=== PATIENT | female | born 1995 | race Caucasian/White ===

== ENCOUNTER 2017-12-18 16:23 | Emergency (ER) | payer SELFPAY ==
[~2017-12-18] VITALS: Ht 162.6 cm; Wt 60.0 kg
[2017-12-18 16:33] VITALS: BP 133/78; PULSE 58; RESP 16; TEMP 98.3; O2SAT 99
--- NOTE | 2017-12-18 16:50 | PD ---
HPI Chief Complaint: ENT Complaint Time Seen by Provider: 16:42 Travel History International Travel<30 days: No Contact w/Intl Traveler<30days: No Traveled to known affect area: No History of Present Illness HPI Patient comes to emergency department complaining of productive cough, sore throat, nausea, and just not feeling well overall. Patient reports her symptoms began approximately 48 hours ago. Denies any chest pain, shortness of breath, abdominal pain, change in bowel or bladder, , or fevers. Patient denies taking anything for this. Denies any making symptoms better or worse. Denies any known sick contacts. PFSH Past Medical History ?: Not LMP: 10 DAYS AGO Social History Alcohol Use: Yes Tobacco Use: No Substance Use: Yes (MARIJUANA) Allergies-Medications (Allergen,Severity, Reaction): Coded Allergies: No Known Allergies (Unverified , 12/18/17) Reported Meds & Prescriptions Reported Meds & Active Scripts Active No Active Prescriptions or Reported Medications Review of Systems Except as stated in HPI: all other systems reviewed are Neg Physical Exam Narrative GENERAL: Well-developed, well nourished, in no acute distress, and non-ill appearing. SKIN: Focused skin assessment warm and dry. HEAD: Atraumatic. Normocephalic. EYES: Pupils equal and round. EOMI. No scleral icterus. No injection or drainage. ENT: No nasal bleeding or discharge. Mucous membranes pink and moist. Tympanic membrane pearly booker bilaterally. Posterior pharynx non-erythematous and without exudate. Uvula is midline. No tenderness to sinuses to palpation. NECK: Trachea midline. No cervical lymphadenopathy. Supple. No nuclear rigidity. CARDIOVASCULAR: Regular rate and rhythm. No murmur appreciated. RESPIRATORY: No accessory muscle use. No respiratory distress. Clear to auscultation. Breath sounds equal bilaterally. No coughing on exam. GASTROINTESTINAL: Abdomen soft, non-tender, nondistended, and no guarding. Hepatic and splenic margins not palpable. Normal bowel sounds x4. No pulsatile mass. MUSCULOSKELETAL: No obvious deformities. No clubbing. No cyanosis. No edema. Full range of motion. NEUROLOGICAL: Awake and alert. No obvious cranial nerve deficits. Motor grossly within normal limits. Normal speech. PSYCHIATRIC: Appropriate mood and affect; insight and judgment normal. Data Data Last Documented VS Vital Signs Date Time Temp Pulse Resp B/P (MAP) Pulse Ox O2 Delivery O2 Flow Rate FiO2 12/18/17 16:33 98.3 58 16 133/78 (96) 99 Orders Orders Influenzae A/B Antigen (12/18/17 16:46) Group A Rapid Strep Screen (12/18/17 16:46) Chest, Single Ap (12/18/17 ) Strep Culture (Group A) (12/18/17 16:54) Ed Discharge Order (12/18/17 17:28) MDM Medical Decision Making Medical Screen Exam Complete: Yes Emergency Medical Condition: Yes Interpretation(s) Last Impressions Chest X-Ray 12/18/17 0000 Signed Impressions: Service Date/Time: Monday, December 18, 2017 17:08 - CONCLUSION: 1. No acute cardiopulmonary disease. Miguel Reynolds MD Differential Diagnosis Influenza, strep pharyngitis, viral pharyngitis, pneumonia, URI, viral syndrome Narrative Course The patient is non-ill appearing and is in no respiratory distress and comfortable. The patient moves air well and oxygen saturations are normal. There is no clinical evidence to suggest pneumonia at this time. Plan of care and management were discussed with the patient who agreed with plan. The patient was instructed to follow up with their physician and instructed to return if worsens, progressively worsening shortness of breath or difficulty breathing, persistent fever, chest pains or discomfort, inability to keep medication or fluids down with or without vomiting, or as needed. Patient in no obvious distress upon re-evaluation. All pertinent laboratory/ Radiology result(s) discussed with patient. Patient reports that she had been drinking heavily the past 3 days and was uncertain if this might have anything to do with her symptoms. Any questions/concerns in reference to patient diagnosis/condition discussed and clarified prior to patient's discharge. Reinforced sheer importance of close follow up with patient's primary physician or primary care clinic. Instructed patient to return to ED immediately, if symptoms return/worsen. Patient showed understanding of above instructions. Further instructions and recommendations were detailed in discharge paperwork. Patient ambulated without difficulty out of ED at discharge. Diagnosis Primary Impression: Viral syndrome Referrals: [facility] Patient Instructions: General Instructions, Viral Syndrome (ED) Additional Instructions: Follow-up with your primary care physician in 3-5 days for evaluation. Use over -the-counter medicine for symptomatic relief. Drink plenty of non-caffeinated nonalcoholic fluids. Return to the emergency department if symptoms get worse. Scripts No Active Prescriptions or Reported Meds Disposition: 01 DISCHARGE HOME Condition: Stable Ru Rios Dec 18, 2017 16:50
--- NOTE | 2017-12-18 17:20 | RADRPT ---
EXAM DATE/TIME: 12/18/2017 17:08 [facility] COMPARISON: No previous studies available for comparison. INDICATIONS : Cough and fever. MEDICAL HISTORY : None. SURGICAL HISTORY : None. ENCOUNTER: Initial ACUITY: 3 days PAIN SCORE: 3/10 LOCATION: Bilateral chest FINDINGS: A single view of the chest demonstrates the lungs to be symmetrically aerated without evidence of mas s, infiltrate or effusion. The cardiomediastinal contours are unremarkable. Osseous structures are intact. CONCLUSION: 1. No acute cardiopulmonary disease. Miguel Reynolds MD on December 18, 2017 at 17:18 Board Certified Radiologist. This report was verified electronically.
== END 2017-12-18 17:36 | disposition home or self-care (01) ==
LOC: PHED 16:23 → PHEFT 17:36
DX: B34.9 Viral infection, unspecified (principal); F12.90 Cannabis use, unspecified, uncomplicated
CPT/HCPCS: 71045; 87081; 87804; 87880; 99284